=== PATIENT | male | born 1990 | race African-American/Black ===

== ENCOUNTER 2016-10-31 22:17 | Emergency (ER) | payer OTHER ==
[~2016-10-31] VITALS: Ht 180.3 cm; Wt 120.9 kg
[~2016-10-31 22:17] MED LIST: ADVAIR 100-501 EACH IH; ADVIL COLD-SIN1 EACH PO; ATARAX,VISTARIL50 MG PO; AUGMENTIN875 MG PO; FLEXERIL10 MG PO; FLEXERIL5 MG PO; HYDROCODON-ACE1 EAC8 PO; KEFLEX500 MG PO; MEDROL DOSEPAK4 MG PO; MOTRIN600 MG PO; NAPROSYN500 MG PO; PERCOCET 5/31 TABLET PO; PREDNISONE20 MG PO; RITALIN10 MG PO; TRAMADOL HCL50 MG PO
[2016-10-31] MEDS ORDERED: ADDERALL15 MG PO ×2 (23:44)
[2016-11-01 01:10] VITALS: BP 143/91
== END 2016-11-01 01:13 | disposition home or self-care (01) ==
LOC: EME 22:17 → EXP 22:17
PROC: 0HQ3XZZ Repair Left Ear Skin, External Approach (ICD-10-PCS; principal; 2016-11-01)
DX: S06.9X3A Unspecified intracranial injury with loss of consciousness of 1 hour to 5 hours 59 minutes, initial encounter (principal); S00.83XA Contusion of other part of head, initial encounter; S01.312A Laceration without foreign body of left ear, initial encounter; M54.2 Cervicalgia; W18.30XA Fall on same level, unspecified, initial encounter; Y92.009 Unspecified place in unspecified non-institutional (private) residence as the place of occurrence of the external cause; G89.29 Other chronic pain; M54.30 Sciatica, unspecified side
CPT/HCPCS: 70450; 70486; 72125; 99281; 99284

== ENCOUNTER 2017-01-28 20:45 | Emergency (ER) | payer OTHER ==
[~2017-01-28] VITALS: Ht 182.9 cm; Wt 110.0 kg
[~2017-01-28 20:45] MED LIST changes: +ADDERALL15 MG PO
[2017-01-28 21:48] LABS: HEMATOCRIT 47.9 % (38.0-50.0); MCH 30.2 PG (29.0-34.0); MCHC 32.4 G/DL (30.0-36.0); MCV 93.2 FL (86-99); MEAN PLAT.VOLUME 11.4 uM^3 (9.0-12.4); PLATELET COUNT 239 K/uL (156-360); RBC DIS.WIDTH-CV 13.3 % (11.8-14.6); RBC DIS.WIDTH-SD 45.7 % (39-53); RED BLOOD COUNT 5.14 M/uL (4.00-5.50); WHITE BLOOD COUNT 9.9 K/uL (4.1-10.2)
[2017-01-28 21:57] LABS: CHLORIDE 107 mEq/L (99-109); POTASSIUM 3.8 mEq/L (3.7-5.4); SODIUM 141 mEq/L (136-147)
[2017-01-28 21:59] LABS: GLUCOSE 78 mg/dL (70-99)
[2017-01-28 22:00] LABS: ANION GAP 20 MEQ/L (2-14)
[2017-01-28 22:02] LABS: ALKALINE PHOSPHATASE 57 IU/L (3-129); SERUM ETHYL ALCOHOL < 10 mg/dL
[2017-01-28 22:03] LABS: GFR ESTIMATE (CALCULATED) > 59 mL/min/
[2017-01-28 22:04] LABS: UREA NITROGEN (BUN) 17 mg/dL (9-23)
[2017-01-29] MEDS ORDERED: KEPPRA1000 MG PO (00:26)
[2017-01-29 01:12] VITALS: BP 117/63
== END 2017-01-29 01:13 | disposition home or self-care (01) ==
LOC: EME → EDBD 20:45 → EME 01-29 01:13
PROVIDERS: Emergency Medicine
DX: G40.909 Epilepsy, unspecified, not intractable, without status epilepticus (principal); Z87.820 Personal history of traumatic brain injury; Z88.2 Allergy status to sulfonamides
CPT/HCPCS: 70450; 80053; 85027; 99281; 99285; G0480; J1953; J2060; J7050

== ENCOUNTER 2017-11-13 13:51 | Emergency (ER) | payer OTHER ==
[~2017-11-13] VITALS: Ht 180.3 cm; Wt 132.5 kg
[~2017-11-13 13:51] MED LIST changes: +KEPPRA1000 MG PO
[2017-11-13] MEDS ORDERED: ZYRTEC10 M3 PO (14:41)
[2017-11-13] MEDS ORDERED: CLEOCIN300 MG PO (14:41)
[2017-11-13] MEDS ORDERED: PREDNISONE20 MG PO (14:41)
[2017-11-13 15:22] VITALS: BP 142/88
== END 2017-11-13 15:31 | disposition home or self-care (01) ==
LOC: EME 13:51
DX: L23.7 Allergic contact dermatitis due to plants, except food (principal); L03.211 Cellulitis of face; Z88.2 Allergy status to sulfonamides
CPT/HCPCS: 99281; 99284; J1100

== ENCOUNTER 2017-12-22 17:36 | Emergency (ER) | payer OTHER ==
[~2017-12-22] VITALS: Ht 182.9 cm; Wt 133.5 kg
[~2017-12-22 17:36] MED LIST changes: +CLEOCIN300 MG PO; +ZYRTEC10 M3 PO
[2017-12-22 21:44] VITALS: BP 128/80
== END 2017-12-22 21:45 | disposition home or self-care (01) ==
LOC: EME 17:36
DX: G40.909 Epilepsy, unspecified, not intractable, without status epilepticus (principal); J45.909 Unspecified asthma, uncomplicated; Z87.820 Personal history of traumatic brain injury; Z88.2 Allergy status to sulfonamides; Z88.8 Allergy status to other drugs, medicaments and biological substances
CPT/HCPCS: 99281; 99284; J1885

== ENCOUNTER → 2018-03-27 | Emergency (ER) | payer OTHER ==
[~2018-03-27] VITALS: Ht 180.3 cm; Wt 132.9 kg
[~2018-03-27] MED LIST changes: +MOTRIN800 MG PO; +ULTRAM50 MG PO
[2018-03-27 00:44] VITALS: BP 145/92
== END | disposition home or self-care (01) ==
LOC: EME 00:42 → EXP 00:42
PROC: 2W2EX4Z Dressing of Right Hand using Bandage (ICD-10-PCS; principal; 2018-03-27)
DX: T23.251A Burn of second degree of right palm, initial encounter (principal); T31.0 Burns involving less than 10% of body surface; X19.XXXA Contact with other heat and hot substances, initial encounter; Z88.2 Allergy status to sulfonamides; Z88.8 Allergy status to other drugs, medicaments and biological substances
CPT/HCPCS: 99281; 99284

== ENCOUNTER 2018-05-01 20:52 | Emergency (ER) | payer OTHER ==
[~2018-05-01] VITALS: Ht 180.3 cm; Wt 126.9 kg
[2018-05-01 20:58] VITALS: BP 120/83
[2018-05-01] MEDS ORDERED: ROBAXIN750 MG PO (22:31)
== END 2018-05-01 22:44 | disposition home or self-care (01) ==
LOC: EME 20:52
DX: G40.909 Epilepsy, unspecified, not intractable, without status epilepticus (principal); M79.1 Myalgia; T42.76XA Underdosing of unspecified antiepileptic and sedative-hypnotic drugs, initial encounter; Z91.128 Patient's intentional underdosing of medication regimen for other reason; J45.909 Unspecified asthma, uncomplicated; Z88.2 Allergy status to sulfonamides